=== PATIENT | female | born 1970 | race Caucasian/White ===

== ENCOUNTER 2017-12-20 19:15 | Emergency (ER) | payer BC ==
[~2017-12-20] VITALS: Ht 157.5 cm; Wt 65.9 kg
[~2017-12-20 19:15] MED LIST: DHA; FERROUS SU325 MG/TAB PO; PRENATAL VITAMI1 TA5 PO
[2017-12-20 19:30] VITALS: BP 136/74; TEMP 99.5
[2017-12-20] MEDS ORDERED: NORCO 325 MG-51 TAB PO (20:30)
[2017-12-20 20:46] VITALS: PULSE 74
== END 2017-12-20 20:43 | disposition home or self-care (01) ==
LOC: COL.ER 19:15
DX: S20.211A Contusion of right front wall of thorax, initial encounter (principal); W18.39XA Other fall on same level, initial encounter
CPT/HCPCS: J1885

== ENCOUNTER → 2019-01-05 | Outpatient (CLI) | payer BC ==
[~2019-01-05] MED LIST changes: +NORCO 325 MG-51 TAB PO
== END ==
LOC: MC.RAD 07:14
DX: Z12.31 Encounter for screening mammogram for malignant neoplasm of breast (principal)

== ENCOUNTER → 2021-04-05 | Outpatient (CLI) | payer BC | LOC: MC.RAD 11:27 | DX: Z12.31 Encounter for screening mammogram for malignant neoplasm of breast (principal) ==

== ENCOUNTER → 2022-07-23 | Outpatient (CLI) | payer BC | LOC: MC.RAD 14:53 | DX: Z12.31 Encounter for screening mammogram for malignant neoplasm of breast (principal) ==